=== PATIENT | male | born 1955 | race Caucasian/White ===

== ENCOUNTER 2021-06-20 15:03 | Emergency (ER) | payer MEDICARE ==
[~2021-06-20] VITALS: Ht 180.3 cm; Wt 108.7 kg
--- NOTE | 2021-06-20 15:37 | NUR ---
PT PRESENTS TO ED WOTH C/O INTERMITTENT, DULL, CHEST PAIN STARTING LAST WEEK. PT STATRES RELEIF WITH NITROGLYCERIN. PT DENIES CARDIAC HX/CA. ALL MONITORS ATTACHED, SINUS TACH, OTHER VSS, NADN. APARNA MAYFIELD AT BEDSIDE FOR EVAL.
[2021-06-20] MEDS ORDERED: ASPIRIN 81 MG TABLET CHEW ONE (15:46)
[2021-06-20] MEDS ORDERED: ASPIRIN 81 MG TABLET CHEW PO ONE (16:00)
[2021-06-20] MEDS ORDERED: SODIUM CHLORIDE FLUSH 10ML SYR IVF ONE (16:00)
--- NOTE | 2021-06-20 16:00 | NUR ---
PIV placed, labs drawn and sent to betty, [facility]ordo [facility].
[2021-06-20 16:19] LABS: BASOPHILS % (AUTO) 1 % (0-1); EOSINOPHILS % (AUTO) 1 % (1-7); LYMPHOCYTES % (AUTO) 33 % (22-44); MEAN CORPUSCULAR HGB CONC 34.4 g/dL (33.2-36.2); MONOCYTES % (AUTO) 11 % (2-9); NEUTROPHILS % (AUTO) 54 % (42-75); PLATELET COUNT 172 x10^3/uL (130-400); RED BLOOD COUNT 5.15 x10^6/uL (4.38-5.82); RED CELL DISTRIBUTION WIDTH 13.6 % (9.4-14.8)
[2021-06-20 16:20] LABS: ALANINE AMINOTRANSFERASE 70 U/L (12-78); ALBUMIN 3.4 g/dL (3.4-5.0); ANION GAP 8 mmol/L (5-15); CALCIUM 9.4 mg/dL (8.5-10.1); CHLORIDE 105 mmol/L (98-107); CREATININE 1.01 mg/dL (0.7-1.3)
[2021-06-20 16:25] LABS: ALKALINE PHOSPHATASE 57 U/L (45-117); BILIRUBIN,TOTAL 0.6 mg/dL (0.2-1.0); TOTAL PROTEIN 7.6 g/dL (6.4-8.2)
[2021-06-20 16:38] LABS: TROPONIN I < 0.015 ng/mL (0.000-0.045)
[2021-06-20 16:52] VITALS: BP 143/98
--- NOTE | 2021-06-20 16:59 | NUR ---
pt resting on rut sotelo nadn. awaiting CT and dispo
--- NOTE | 2021-06-20 17:20 | NUR ---
pt to ct at this time
[2021-06-20] MEDS ORDERED: OMNIPAQUE 350 MG/ML, 75ML BOTTLE ONE (17:25)
--- NOTE | 2021-06-20 18:08 | NUR ---
pt educated on dc instructions, verbalized undertsanding, ambulatory to dc desk with steady gait.
== END 2021-06-20 18:13 | disposition home or self-care (01) ==
LOC: ED 18:05
DX: R07.89 Other chest pain (principal); R91.8 Other nonspecific abnormal finding of lung field; E78.5 Hyperlipidemia, unspecified
CPT/HCPCS: 36415; 71045; 71275; 80053; 83880; 84484; 85025; 93005; 99285; Q9967